=== PATIENT | female | born 1990 | race African-American/Black ===

== ENCOUNTER 2021-11-28 16:39 | Emergency (ER) | payer MEDICAID, OTHER ==
[~2021-11-28] VITALS: Ht 170.2 cm; Wt 77.1 kg
[2021-11-28 21:28] VITALS: BP 129/88
[2021-11-29] MEDS ORDERED: IBUP800T27 PO (05:21)
== END 2021-11-29 22:16 | disposition home or self-care (01) ==
LOC: EDBD 16:39 → ER 16:39
DX: Z13.30 Encounter for screening examination for mental health and behavioral disorders, unspecified (principal); F20.9 Schizophrenia, unspecified; Z20.822 Contact with and (suspected) exposure to COVID-19
CPT/HCPCS: 36415; 87426

== ENCOUNTER → 2021-11-29 | Emergency (ER) | payer MEDICAID, OTHER ==
[~2021-11-29] MED LIST: ACETAMINOPHEN 500 MG TAB PO ONE; IBUP800T27 PO; KETOROLAC TROMETH 60MG/2ML VIAL IM ONE
[2021-11-29 06:29] VITALS: BP 114/72
== END | disposition home or self-care (01) ==
LOC: EDUNIT# 01:53 → EDBD 01:56 → ER 01:56
DX: S02.5XXA Fracture of tooth (traumatic), initial encounter for closed fracture (principal); X58.XXXA Exposure to other specified factors, initial encounter; Y93.89 Activity, other specified; Y92.89 Other specified places as the place of occurrence of the external cause; Y99.8 Other external cause status
CPT/HCPCS: 96372; 99283; J1885